=== PATIENT | male | born 1940 | race Caucasian/White ===

== ENCOUNTER 2020-03-10 11:36 | Emergency (ER) | payer MEDICARE ==
[~2020-03-10 11:36] MED LIST: Haloperidol Lactate 5 MG/ML SDV ONE; Ondansetron 4 MG/2 ML SDV ONE
[2020-03-10] MEDS ORDERED: HYDROmorphone 1 MG/ML Syringe ONE (11:37)
[2020-03-10] MEDS ORDERED: Haloperidol Lactate 5 MG/ML SDV IVPUSH ONE ×2 (11:37→13:05)
[2020-03-10] MEDS ORDERED: HYDROmorphone 1 MG/ML Syringe IVPUSH ONE (11:38)
[2020-03-10] MEDS ORDERED: Ondansetron 4 MG/2 ML SDV IVPUSH ONE (11:38)
[2020-03-10] MEDS ORDERED: LORazepam 2 MG/ML SDV IVPUSH ONE ×3 (11:41→13:05)
[2020-03-10] MEDS ORDERED: LORazepam 2 MG/ML SDV ONE (11:43)
--- NOTE | 2020-03-10 11:52 | EDM.PDOC ---
ED HPI GENERAL MEDICAL PROBLEM - General Chief Complaint: Neurological Problem Stated Complaint: [facility] Time Seen by Provider: 03/10/20 11:40 Source of Information: Reports: Patient, EMS. Denies: Old Records History Limitations: Reports: Other (no old records) - History of Present Illness INITIAL COMMENTS - FREE TEXT/NARRATIVE: 79 yo male is brought in by EMS today for apparent acute confusion that reportedly began about 15 min after awakening today. He was seen in [place] for a TIA last week and gets all of his medical care to date there. Sx's onset about 0915h today. Is not demonstrating any obvious focal deficits for EMS or us upon arrival. Answers some questions appropriately and clearly, but other questions he does not answer. Lives with his who is not coming in. EMS brought him here where he has never been today because it was a little closer to his home than [place]. Records from [place] indicated a pHx of renal stones, stage 3 CRF, Onset: Today Onset Date: 03/10/20 Duration: Hour(s): (2+) Location: Reports: Generalized (restlessness) Quality: Reports: Other (uncertain) Severity: Severe Improves with: Reports: Medication (seems a bit more calm after medications given in ER) Worsens with: Reports: Other (unknown) Context: Reports: Other (See HPI) Associated Symptoms: Reports: Nausea/Vomiting (reports nausea, no vomiting). Denies: Fever/Chills Treatments PROCESSING SPEC: Reports: Other (see below) (none) - Related Data Allergies Allergy/AdvReac Type Severity Reaction Status Date / Time esomeprazole [From Nexium] Allergy Other Verified 03/10/20 11:58 Penicillins Allergy Other Verified 03/10/20 11:58 quinidine Allergy Other Verified 03/10/20 11:58 Home Meds: Home Meds Albuterol Sulfate [Albuterol Sulfate Hfa] 8.5 gm IH Q4HR PRN 03/10/20 [History] Aspirin 81 mg PO DAILY 03/10/20 [History] Cholecalciferol (Vitamin D3) [Vitamin D3] 1 tab PO DAILY 03/10/20 [History] Clopidogrel [Plavix] 75 mg PO DAILY 03/10/20 [History] Docusate Sodium 100 mg PO BID 03/10/20 [History] Famotidine [Pepcid] 20 mg PO DAILY 03/10/20 [History] Fludrocortisone [Florinef] 1 tab PO DAILY 03/10/20 [History] Fluticasone Propion/Salmeterol [Fluticasone-Salmeterol 250-50] 1 puff IH DAILY 03/10/20 [History] Midodrine 10 mg PO TIDAC 03/10/20 [History] Montelukast [Singulair] 10 mg PO DAILY 03/10/20 [History] Nitroglycerin [Nitrostat] 0.4 mg SL ASDIRECTED 03/10/20 [History] Sodium Chloride 1 gm PO BID 03/10/20 [History] Tamsulosin [Flomax] 1 tab PO DAILY 03/10/20 [History] Vit A/C/E AC/Znox/Cupric Oxide [Eye Vitamin-Minerals Tablet] 1 tab PO DAILY 03/10/20 [History] atorvaSTATin [Lipitor] 20 mg PO BEDTIME 03/10/20 [History] ondansetron HCL [Zofran] 4 mg PO Q4HR PRN 03/10/20 [History] ED ROS GENERAL - Review of Systems Review Of Systems: Unable To Obtain (due to confusion) Reason Not Obtained: acute confusion GI/Abdominal: Reports: Abdominal Pain (apparent, patient reports) Neurological: Reports: Confusion (unable/unwilling to answer some questions for us, old vs new?) Psychiatric: Reports: Agitation (EMS reported) - Physical Exam Exam: See Below Exam Limited By: No Limitations General Appearance: Alert, WD/WN, Anxious, Moderate Distress Eye Exam: Bilateral Eye: Normal Inspection Ears: Normal External Exam, Normal Canal, Hearing Grossly Normal Nose: Normal Inspection, No Blood Throat/Mouth: Normal Inspection, Normal Lips, Normal Voice, No Airway Compromise Head Exam: Atraumatic, Normocephalic Neck: Normal Inspection Respiratory/Chest: No Respiratory Distress, Lungs Clear, Normal Breath Sounds, No Accessory Muscle Use Cardiovascular: Regular Rate, Rhythm, No Edema GI/Abdominal: Soft, Tender (? patient reports tenderness). No: Non-Tender Neuro Exam (Abbreviated): Alert, CN II-XII Intact, No Motor/Sensory Deficits, Confused (mildly to moderately) Extremities: Normal Inspection, Normal Range of Motion, Non-Tender, No Pedal Edema Psychiatric: Anxious Skin Exam: Warm, Dry, Intact, Normal Color, No Rash Course - Vital Signs Last Recorded V/S: Last Vital Signs Temp Pulse 84 03/10/20 12:29 Resp 13 03/10/20 12:29 BP 169/95 H 03/10/20 12:29 Pulse Ox 99 03/10/20 12:29 - Orders/Labs/Meds Orders: Active Orders 24 hr Category Date Time Status Chamberlain Catheter Insertion [Insert Urinary Catheter] [OM. Care 03/10/20 11:45 Ordered PC] Q24H Urinary Catheter Assessment [RC] ASDIRECTED Care 03/10/20 11:39 Active COMPREHENSIVE METABOLIC PN,CMP [CHEM] Stat Lab 03/10/20 12:40 Received LIPASE [CHEM] Stat Lab 03/10/20 12:40 Received TROPONIN I [CHEM] Stat Lab 03/10/20 12:40 Received Iopamidol [Isovue-300 (61%)] Med 03/10/20 12:15 Active 100 ml IV . DIRECTED Sodium Chloride 0.9% [Normal Saline] 75 ml Med 03/10/20 12:15 Active IV ASDIRECTED Medication Orders Sodium Chloride (Normal Saline) 75 mls @ 3 mls/sec IV ASDIRECTED AVRIL Iopamidol (Isovue-300 (61%)) 100 ml IV . [facility]ED [facility] Labs: Laboratory Tests 03/10/20 03/10/20 Range/Units 11:39 12:22 WBC 9.4 (4.5-11.0) K/uL RBC 4.35 (4.30-5.90) M/uL Hgb 13.1 (12.0-15.0) g/dL Hct 41.1 (40.0-54.0) % MCV 95 (80-98) fL MCH 30 (27-31) pg MCHC 32 (32-36) % Plt Count 243 (150-400) K/uL Urine Color Other A (YELLOW) Urine Appearance Slightly cloudy A (CLEAR) Urine pH 6.0 (5.0-8.0) Ur Specific [place] >= 1.030 (1.008-1.030) Urine Protein 30 H (NEGATIVE) mg/dL Urine Glucose (UA) Negative (NEGATIVE) mg/dL Urine Ketones Negative (NEGATIVE) mg/dL Urine Occult Blood Large H (NEGATIVE) Urine Nitrite Negative (NEGATIVE) Urine Bilirubin Negative (NEGATIVE) Urine Urobilinogen 0.2 (0.2-1.0) EU/dL Ur Leukocyte Esterase Negative (NEGATIVE) Urine RBC 40-50 H (0-5) Urine WBC 0-5 (0-5) Ur Epithelial Cells Not seen Urine Bacteria Not seen Meds: Medications Generic Name Dose Route Start Last Admin Trade Name Freq PRN Reason Stop Dose Admin Sodium Chloride 75 mls @ 3 mls/sec 03/10/20 12:15 Normal Saline IV ASDIRECTED AVRIL Iopamidol 100 ml 03/10/20 12:15 Isovue-300 (61%) IV . DIRECTED AVRIL Discontinued Medications Generic Name Dose Route Start Last Admin Trade Name Freq PRN Reason Stop Dose Admin Haloperidol Lactate 5 mg 03/10/20 11:37 03/10/20 11:36 Haldol IVPUSH 03/10/20 11:38 5 mg ONETIME ONE Administration Hydromorphone HCl 1 mg 03/10/20 11:38 03/10/20 11:36 Dilaudid IVPUSH 03/10/20 11:39 1 mg ONETIME ONE Administration Lorazepam 1 mg 03/10/20 11:41 03/10/20 11:45 Ativan IVPUSH 03/10/20 11:42 1 mg ONETIME ONE Administration Lorazepam 1 mg 03/10/20 11:53 03/10/20 11:55 Ativan IVPUSH 03/10/20 11:54 1 mg ONETIME ONE Administration Midazolam HCl 3 mg 03/10/20 12:01 03/10/20 12:18 Versed 1 Mg/Ml IVPUSH 03/10/20 12:02 Not Given ONETIME ONE Midazolam HCl 3 mg 03/10/20 12:17 03/10/20 12:17 Versed 1 Mg/Ml IVPUSH 03/10/20 12:18 3 mg ONETIME ONE Administration Ondansetron HCl 4 mg 03/10/20 11:38 03/10/20 11:36 Zofran IVPUSH 03/10/20 11:39 4 mg ONETIME ONE Administration Sodium Chloride 10 ml 03/10/20 12:12 Saline Flush FLUSH 03/10/20 12:13 ONETIME ONE - Radiology Interpretation Free Text/Narrative:: CT head-neg CT abd/pelvis-neg CT Results Date: 03/10/20 Departure - Departure Time of Disposition: 13:10 Disposition: DC/Tfer to Acute Hospital 02 Condition: Serious Clinical Impression: Acute confusion - Discharge Information *PRESCRIPTION DRUG MONITORING PROGRAM REVIEWED*: No *COPY OF PRESCRIPTION DRUG MONITORING REPORT IN PATIENT YAMEL: No Referrals: PCP,None [Primary Care Provider] - Forms: ED Department Discharge Additional Instructions: Flying to ER at [facility]. Sepsis Event Note (ED) - Focused Exam Vital Signs: Vital Signs Pulse Resp BP Pulse Ox 03/10/20 12:29 84 13 169/95 H 99 03/10/20 11:36 84 13 169/95 H 99 - My Orders Last 24 Hours: My Active Orders 03/10/20 11:39 Urinary Catheter Assessment [RC] ASDIRECTED 03/10/20 11:45 Chamberlain Catheter Insertion [Insert Urinary Catheter] [OM.PC] Q24H 03/10/20 12:15 Iopamidol [Isovue-300 (61%)] 100 ml IV . DIRECTED Sodium Chloride 0.9% [Normal Saline] 75 ml IV ASDIRECTED 03/10/20 12:40 COMPREHENSIVE METABOLIC PN,CMP [CHEM] Stat LIPASE [CHEM] Stat TROPONIN I [CHEM] Stat - Assessment/Plan Last 24 Hours: My Active Orders 03/10/20 11:39 Urinary Catheter Assessment [RC] ASDIRECTED 03/10/20 11:45 Chamberlain Catheter Insertion [Insert Urinary Catheter] [OM.PC] Q24H 03/10/20 12:15 Iopamidol [Isovue-300 (61%)] 100 ml IV . DIRECTED Sodium Chloride 0.9% [Normal Saline] 75 ml IV ASDIRECTED 03/10/20 12:40 COMPREHENSIVE METABOLIC PN,CMP [CHEM] Stat LIPASE [CHEM] Stat TROPONIN I [CHEM] Stat
[2020-03-10] MEDS ORDERED: Midazolam 1 MG/ML 2 ML SDV IVPUSH ONE (12:01)
[2020-03-10] MEDS ORDERED: Midazolam 1 MG/ML 5 ML SDV ONE (12:02)
[2020-03-10] MEDS ORDERED: Sodium Chloride 0.9% 10 ML Syringe FLUSH ONE (12:12)
[2020-03-10] MEDS ORDERED: Iopamidol 612 MG/ML 100 ML Bottle IV SCH (12:15)
[2020-03-10] MEDS ORDERED: Sodium Chloride 0.9% 75 ML IV SCH (12:15)
[2020-03-10] MEDS ORDERED: Midazolam 1 MG/ML 5 ML SDV IVPUSH ONE (12:17)
--- NOTE | 2020-03-10 12:22 | CT ---
Head wo Cont CLINICAL HISTORY: History of TIA COMPARISON: None TECHNIQUE: Transverse scans were obtained from the base of the skull through the vertex without IV contrast on a multislice, multidetector CT scanner. Auto dosage reduction and iterative reconstruction techniques employed. Scan available for viewing at 12:16 PM FINDINGS: There is a 7 mm low-attenuation focus in the right thalamus. This is fairly well demarcated and likely of remote chronology. There is scattered periventricular and subcortical lucency. There is no mass effect, hemorrhage, or extraaxial collection. The basal cisterns and sulci over the convexities are mildly prominent. The ventricles are normal for age. 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
--- NOTE | 2020-03-10 12:31 | CT ---
Abdomen Pelvis w Cont CLINICAL HISTORY: Pain COMPARISON: None. TECHNIQUE: Axial tomographic images are obtained from the dome of the diaphragm to the pubic symphysis without IV contrast enhancement. No oral contrast was used. Auto dosage reduction and iterative reconstruction techniques employed. FINDINGS: The lung bases show moderate motion artifact. No infiltrates are seen. The liver is also submitted to moderate artifact. No mass or biliary dilatation is identified. The gallbladder has a normal contour. The spleen has a normal size and shape. This mild gastric distention which is nonspecific. The pancreas shows no mass or inflammatory change. The adrenal glands appear normal bilaterally. The kidneys 4.0 x 3.8 cm. Left measures 3.9 x 5.6 cm. There are small renal calculi bilaterally. There is a 5 x 10 mm calcification in the left renal pelvis. There is no hydronephrosis. Ureters have a normal course and caliber. Bladder is empty. There is a Chamberlain catheter in place. Prostate is enlarged. The aorta shows some atheromatous plaque without aneurysm. There is no suspicious retroperitoneal adenopathy. Intestinal gas pattern is nonacute. Appendix is normal contour. There is some mild diverticulosis IMPRESSION: Moderate motion artifact in the upper abdomen Mild gastric distention which is nonspecific Bilateral renal cysts Bilateral nonobstructing renal calculi Nonacute intestinal gas pattern
[2020-03-10] MEDS ORDERED: Sodium Chloride 0.9% 1,000 ML IV SCH (13:15)
== END 2020-03-10 13:28 ==
LOC: JP.ED 11:36
DX: R41.0 Disorientation, unspecified (principal); Z88.0 Allergy status to penicillin; Z88.8 Allergy status to other drugs, medicaments and biological substances; Z79.82 Long term (current) use of aspirin; Z79.02 Long term (current) use of antithrombotics/antiplatelets; Z79.899 Other long term (current) drug therapy
CPT/HCPCS: 36415; 51702; 70450; 74177; 80053; 81001; 83690; 84484; 85027; 96374; 96375; 96376; 99285; J1170; J1630; J2060; J2250; J2405; J7030

== ENCOUNTER 2024-05-30 12:33 | Emergency (ER) | payer MEDICARE, OTHER | END 2024-05-30 14:00 | disposition home or self-care (01) | LOC: JP.ED 12:33 | DX: K04.7 Periapical abscess without sinus (principal); Z79.82 Long term (current) use of aspirin; Z79.899 Other long term (current) drug therapy; Z88.0 Allergy status to penicillin; Z88.8 Allergy status to other drugs, medicaments and biological substances | CPT/HCPCS: 99283 ==

== ENCOUNTER 2024-11-26 10:10 | Emergency (ER) | payer MEDICARE, OTHER ==
[2024-11-26 11:17] LABS: BASOPHILS ABSOLUTE AUTO 0.08 K/uL (0.00-0.10); BASOPHILS PERCENT AUTO 0.9 % (0.1-1.3); EOSINOPHILS ABSOLUTE AUTO 0.13 K/uL (0.00-0.40); EOSINOPHILS PERCENT AUTO 1.5 % (0.0-5.4); HEMATOCRIT 41.1 % (38.4-49.7); HEMOGLOBIN 13.8 g/dL (12.9-16.9); IMMATURE GRAN ABSOLUTE AUTO 0.05 K/uL (0.00-0.23); IMMATURE GRAN PERCENT AUTO 0.6 % (0.0-0.7); LYMPHOCYTES ABSOLUTE AUTO 1.89 K/uL (0.8-3.3); LYMPHOCYTES PERCENT AUTO 22.3 % (11.4-47.7); MEAN CORPUSCULAR HEMOGLOBIN 32.2 pg (31.6-35.5); MEAN CORPUSCULAR HGB CONC 33.6 g/dL (31.6-35.5); MEAN CORPUSCULAR VOLUME 95.8 fL (81.4-99.0); MONOCYTES ABSOLUTE AUTO 0.69 K/uL (0.20-0.90); MONOCYTES PERCENT AUTO 8.1 % (3.3-12.6); NEUTROPHILS ABSOLUTE AUTO 5.63 K/uL (1.0-7.6); NEUTROPHILS PERCENT AUTO 66.6 % (40.0-78.1); PLATELET COUNT,PLT 210 K/uL (130-375); RED BLOOD CELL COUNT 4.29 M/uL (4.14-5.76); WHITE BLOOD CELL COUNT,WBC 8.5 K/uL (3.2-11.0)
[2024-11-26 11:23] LABS: ANION GAP 10.4 mmol/L (5.0-14.0); CALCIUM 9.1 mg/dL (8.5-10.1); CREATININE 1.3 mg/dL (0.8-1.3); EST CRCL DRUG DOSING (CG) 39.53 mL/min; POTASSIUM,K 4.1 mmol/L (3.6-5.2)
== END 2024-11-26 12:50 | disposition home or self-care (01) ==
LOC: JP.ED 10:10
DX: R10.31 Right lower quadrant pain (principal); E78.00 Pure hypercholesterolemia, unspecified; J44.9 Chronic obstructive pulmonary disease, unspecified; N18.9 Chronic kidney disease, unspecified; Z88.0 Allergy status to penicillin; Z88.8 Allergy status to other drugs, medicaments and biological substances; Z79.51 Long term (current) use of inhaled steroids; Z79.82 Long term (current) use of aspirin; Z79.899 Other long term (current) drug therapy; Z86.73 Personal history of transient ischemic attack (TIA), and cerebral infarction without residual deficits
CPT/HCPCS: 36415; 74176; 74176-26; 80048; 85025; 99284